=== PATIENT | female | born 1965 | race Caucasian/White ===

== ENCOUNTER 2016-11-23 20:59 | Emergency (ER) | payer MEDICAID ==
[~2016-11-23] VITALS: Ht 152.4 cm; Wt 90.7 kg
[2016-11-23 20:59] VITALS: BP 124/84; PULSE 82; RESP 20; TEMP 97.2; O2SAT 90
--- NOTE | 2016-11-23 21:00 | NUR ---
Patient to ER bed 1 to gown for evaluation. Side rails up. Report given to ENZO OWUSU.
--- NOTE | 2016-11-23 21:01 | NUR ---
Awake alert oriented x 4. Clear speech. Pt stated SOB for the last 4x days. 91% RA. Son at bed side. HOB high mcneal positioned. Will continue to monitor.
--- NOTE | 2016-11-23 21:01 | NUR ---
ER at bedside examining patient.
[2016-11-23] MEDS ORDERED: IPRATROPIUM/ALBUTEROL SULFATE 3 ML AMPUL.NEB INH ONE ×3 (21:15→23:15)
[2016-11-23] MEDS ORDERED: methylPREDNISolone SOD SUCC/PF 62.5 MG/ML VIAL IM ONE (21:15)
--- NOTE | 2016-11-23 21:15 | NUR ---
Pt on breathing treatment via nebulizer.
--- NOTE | 2016-11-23 21:36 | NUR ---
placed 2L nasal cannula per MD. Spo2 94% at the time.
[2016-11-23] MEDS ORDERED: MAGNESIUM SULFATE 50 ML IV ONE (23:00)
[2016-11-24] MEDS ORDERED: IPRATROPIUM/ALBUTEROL SULFATE 3 ML AMPUL.NEB INH ONE (00:15)
[2016-11-24 01:10] VITALS: BP 109/63
[2016-11-24 02:05] VITALS: PULSE 87; RESP 18; TEMP 97.4; O2SAT 93
--- NOTE | 2016-11-24 02:05 | NUR ---
Patient given written and verbal discharge instructions and verbalizes understanding. ER MD discussed with patient the results and treatment provided. Given copies of tests performed in ER. Patient in stable condition. ID arm band removed. IV catheter removed intact and dressing applied, no active bleeding. Rx of prednisone 50mg P.O daily for 5 x days and albulertol 2 puff as needed every two hours given. verbalized understanding. Patient educated on pain management and to follow up with PMD. Denied any pain or discomfort. Opportunity for questions provided and answered.
== END 2016-11-24 02:05 | disposition home or self-care (01) ==
LOC: SED 20:59
DX: J45.901 Unspecified asthma with (acute) exacerbation (principal); R03.0 Elevated blood-pressure reading, without diagnosis of hypertension
CPT/HCPCS: 94640; 96365; 96372; 99285; J2930; J3475; J7040; 99284

== ENCOUNTER 2017-04-20 21:41 | Emergency (ER) | payer MEDICAID ==
[~2017-04-20] VITALS: Ht 154.9 cm; Wt 79.8 kg
[2017-04-20 22:34] VITALS: BP_SYST 111
--- NOTE | 2017-04-20 23:05 | NUR ---
Pt states that around 1500, pt started getting SOB when taking a shower. Pt does not have inhaler at home. AAOx4. Lung sounds clear. No distress noted. Will continue to monitor. No other injuries or complaints mentioned/noted. No distress noted.
--- NOTE | 2017-04-20 23:05 | NUR ---
Patient to ER bed 1 to gown for evaluation. Side rails up. Report given to Gabriel OWUSU.
--- NOTE | 2017-04-20 23:15 | NUR ---
ER Dr. Russo at bedside examining patient.
[2017-04-20] MEDS ORDERED: IPRATROPIUM/ALBUTEROL SULFATE 3 ML AMPUL.NEB INH ONE (23:30)
[2017-04-20 23:58] VITALS: BP_SYST 103
--- NOTE | 2017-04-20 23:58 | NUR ---
Patient given written and verbal discharge instructions and verbalizes understanding. ER MD discussed with patient the results and treatment provided. Patient in stable condition. ID arm band removed. Rx of Albuterol given. Patient educated on pain management and to follow up with PMD. Pain Scale 0/10. Opportunity for questions provided and answered. No adverse reactions noted.
== END 2017-04-20 23:58 | disposition home or self-care (01) ==
LOC: SED 21:41
DX: J45.901 Unspecified asthma with (acute) exacerbation (principal)
CPT/HCPCS: 94640; 99283

== ENCOUNTER 2017-05-24 07:19 | Emergency (ER) | payer SELFPAY ==
[~2017-05-24] VITALS: Ht 154.9 cm; Wt 79.4 kg
[2017-05-24 07:26] VITALS: BP_SYST 149
--- NOTE | 2017-05-24 07:35 | NUR ---
Ambulatory to bed 5
--- NOTE | 2017-05-24 07:55 | NUR ---
Pt AAOx1, confused, Bahamian speaking. Daughter at bedside to translate. Pt expressing flight of ideas and "acting irrationally" per daughter. Daughter states pt "has been hearing voices since 2 weeks ago and has not been making sense." Pt states voices "want to harm others" but states she does not want to harm herself or others. Daughter also states that last month, pt's was admitted to hospital and discharged home and mother "was acting okay until few weeks ago." No other complaints or injuries per pt or noted.
--- NOTE | 2017-05-24 08:11 | NUR ---
DAYAN Chavez at bedside examining patient.
[2017-05-24 08:27] LABS: BILIRUBIN,URINE NEGATIVE (NEGATIVE); BLOOD, URINE NEGATIVE (NEGATIVE); CLARITY/URINE CLEAR (CLEAR); COLOR,URINE YELLOW (YELLOW); GLUCOSE,URINE NEGATIVE (NEGATIVE); KETONES,URINE NEGATIVE (NEGATIVE); LEUKOCYTE ESTERASE ,URINE 1+ (NEGATIVE); NITRITE, URINE NEGATIVE (NEGATIVE); PH,URINE 6.5 (5.0-8.0); PROTEIN URINE NEGATIVE (NEGATIVE); UROBILINOGEN,URINE 0.2 (0.2-1.0)
[2017-05-24 08:35] LABS: BASOPHILS % (AUTO) 0.5 % (0.0-2.0); EOSINOPHILS % (AUTO) 0.4 % (0.0-4.0); HEMATOCRIT 36.9 % (36-48); HEMOGLOBIN 12.6 g/dL (12.0-16.0); LYMPHOCYTES # (AUTO) 1.2 K/uL (1.0-5.5); LYMPHOCYTES % (AUTO) 22.7 % (20.5-51.5); MEAN CORPUSCULAR HEMOGLOBIN 31 pg (27-31); MEAN CORPUSCULAR HGB CONC 34 % (32-36); MEAN CORPUSCULAR VOLUME 90 fL (79.0-98.0); MONOCYTES # (AUTO) 0.3 K/uL (0.0-1.0); MONOCYTES % (AUTO) 6.4 % (1.7-9.3); NEUTROPHILS # (AUTO) 3.6 K/uL (1.8-7.7); PLATELET COUNT (AUTO) 180 K/uL (130-430); RED CELL DISTRIBUTION WIDTH 11.9 % (9.0-15.0); WHITE BLOOD COUNT (AUTO) 5.1 K/uL (4.8-10.8)
--- NOTE | 2017-05-24 08:35 | NUR ---
Rosalia dotson in ED - 05/24/17 at 0907 by [email or web address] Pt off unit to radiology.
[2017-05-24 08:36] LABS: BARBITURATE, URINE NEGATIVE (NEG <=200); BENZODIAZEPINE, URINE NEGATIVE (NEG <=150); CANNABINOID, URINE NEGATIVE (NEG <=50); COCAINE, URINE NEGATIVE (NEG <=150); METHAMPHETAMINES SCREEN,URINE NEGATIVE (NEG <=500); OPIATE, URINE NEGATIVE (NEG <=100); PHENCYCLIDINE SCREEN,URINE NEGATIVE (NEG <=25); UR TRICYCLIC ANTIDEPRESSANTS NEGATIVE (NEG <=300); URINE AMPHETAMINE NEGATIVE (NEG <=500); URINE METHADONE NEGATIVE (NEG <=200); URINE OXYCODONE SCREEN NEGATIVE (NEG <=100); URINE PROPOXYPHENE SCREEN NEGATIVE (NEG <=300)
[2017-05-24 08:45] LABS: CHLORIDE 105 mmol/L (98-107); POTASSIUM 3.5 mmol/L (3.5-5.1); SODIUM SERUM 140 mmol/L (136-145)
[2017-05-24 08:46] LABS: ANION GAP 9 (5-15); CALCIUM 9.4 mg/dL (8.4-11.0); CREATININE 0.82 mg/dL (0.55-1.30); GFR AFRICAN AMERICAN 95 mL/min (>90); GLUCOSE 151 mg/dL (70-99); UREA NITROGEN, BLOOD 15 mg/dL (8-21)
[2017-05-24 08:48] LABS: BACTERIA,URINE FEW /HPF (None Seen); MUCUS,URINE 1+ /LPF (None Seen); RBC,URINE 0-3 /HPF (0-3)
--- NOTE | 2017-05-24 08:59 | NUR ---
Rosalia dotson in EDM - 05/24/17 at 0907 by [email or web address] Pt return to unit from radiology. Tolerated well.
[2017-05-24 09:00] LABS: ALANINE AMINOTRANSFERASE 26 U/L (12-78); ALBUMIN 4.2 g/dL (3.4-4.8); ALCOHOL, BLOOD 3 mg/dL (<10); ASPARTATE AMINOTRANSFERASE 15 U/L (10-37); THYROID STIMULATING HORMONE 0.38 uIu/mL (0.34-4.82); TOTAL BILIRUBIN 0.4 mg/dL (0.0-1.0)
[2017-05-24 09:03] LABS: ACETAMINOPHEN < 1 ug/mL (1-30)
--- NOTE | 2017-05-24 09:05 | NUR ---
Dr. Chadwick called unit and spoke with Dr. Chavez. Dr. Chadwick is unable to evaluate pt and states another MD can evaluate later tonight. PET team paged for evaluation.
[2017-05-24] MEDS ORDERED: IBUPROFEN 800 MG TABLET PO ONE (09:15)
--- NOTE | 2017-05-24 09:30 | NUR ---
Pt observed covering head with blanket and states she is "trying to hide from the people and voices." Pt states not wanting to harm self or others. Pt's daughter at bedside.
--- NOTE | 2017-05-24 10:30 | NUR ---
Pt sitting up in bed, son at bedside. Pt states she is "feeling better and not hearing voices currently," and states not wanting to harm self or others. Will continue to monitor.
--- NOTE | 2017-05-24 11:00 | NUR ---
Pt provided with safety lunch tray and sitting up in bed eating. Pt's son at bedside. Pt states not hearing voices currently.
--- NOTE | 2017-05-24 11:49 | NUR ---
Pt on stable condition resting at this time, VS WNL, skin pink and warm, cap refill <3, denies suicidal ideation,denies pain.
--- NOTE | 2017-05-24 12:05 | NUR ---
PET team at bedside.
--- NOTE | 2017-05-24 13:24 | NUR ---
Patient given written and verbal discharge instructions and verbalizes understanding. ER MD discussed with patient the results and treatment provided. Patient in stable condition. ID arm band removed. No Rx given. Patient educated on pain management and to follow up with PMD and psych referral. Pain Scale 0/10. Opportunity for questions provided and answered.
[2017-05-24 13:25] VITALS: BP_SYST 129
== END 2017-05-24 13:25 | disposition home or self-care (01) ==
LOC: SED 07:19
DX: R44.0 Auditory hallucinations (principal); J45.909 Unspecified asthma, uncomplicated; E66.9 Obesity, unspecified; Z68.33 Body mass index [BMI] 33.0-33.9, adult
CPT/HCPCS: 36415; 80053; 80307; 81000; 81025; 84443; 85025; 87086; 93005; 99285; G0480; G0481; G0482